=== PATIENT | male | born 1970 | race African-American/Black ===

== ENCOUNTER 2024-03-20 09:21 | Emergency (ER) | payer BC ==
[~2024-03-20] VITALS: Ht 170.2 cm; Wt 86.2 kg
[2024-03-20 09:34] VITALS: BP_SYST 161; PULSE 95; RESP 20; TEMP 98.3; O2SAT 97
[2024-03-20] MEDS ORDERED: NABU-140 PO (09:53)
[2024-03-20] MEDS ORDERED: ZAN4 PO (09:53)
[2024-03-20 09:58] VITALS: BP_SYST 161; PULSE 95; RESP 20; TEMP 98.3; O2SAT 97
== END 2024-03-20 10:00 | disposition home or self-care (01) ==
LOC: SED 09:21
DX: S16.1XXA Strain of muscle, fascia and tendon at neck level, initial encounter (principal); M25.512 Pain in left shoulder; X58.XXXA Exposure to other specified factors, initial encounter; Y93.89 Activity, other specified; Y92.89 Other specified places as the place of occurrence of the external cause; Y99.8 Other external cause status
CPT/HCPCS: 99283